=== PATIENT | male | born 1975 | race Caucasian/White ===

== ENCOUNTER 2017-06-15 10:21 | Emergency (ER) | payer MEDICAID, SELFPAY ==
[2017-06-15 10:22] VITALS: BP 153/96; PULSE 115; RESP 18; TEMP 36.6; O2SAT 100; BMI 25.4
--- NOTE | 2017-06-15 10:27 | EKG12_ITS ---
Test Reason : [facility] [place] Blood Pressure : / mmHG Vent. Rate : 110 BPM Atrial Rate : 227 BPM P-R Int : 000 ms QRS Dur : 094 ms QT Int : 350 ms P-R-T Axes : 000 065 015 degrees QTc Int : 473 ms Sinus tachycardia Nonspecific T wave abnormality Abnormal ECG Confirmed by STEPHANIE KISER, SAMUEL ([id number]), editor publications LUZ APPIAH ([id number]) on 06/20/2017 4:34:03 PM Referred By: Dayday Appiah Confirmed By:SAMUEL BROWN MD
[2017-06-15 10:56] LABS: Absolute Lymphocyte Count 1.81 X10^3/ul (0.83-4.51); Absolute Neutrophil Count 1.8 X10^3/uL (2.0-7.7); Basophil# 0.02 X10^3/uL; Basophil% 0.5 % (0-1); Eosinophil# 0.03 X10^3/uL; Eosinophils% 0.8 % (0-5); Hematocrit 47.6 % (40-54); Hemoglobin 15.2 g/dl (13.0-16.5); Lymphocyte # 1.81 X10^3/ul (4.0); Mean Corp Hgb Conc 31.9 g/gl (32-36); Mean Corpuscular Hgb 24.4 pg (27.0-32.0); Mean Corpuscular Volume 76.4 fL (80-94); Mean Platelet Vol. 8.9 fl (6.2-12.0); Monocyte# 0.14 X10^3/uL; Monocyte% 3.7 % (0-10); Neutrophil # 1.77 X10^3/uL (2.7-7.7); Platelet Count 317 K/mm3 (150-450); RBC Distribution Width CV 15.7 % (11.6-14.6); RBC Distribution Width SD 42.1 fl (35.1-43.9); Red Blood Count 6.23 M/mm3 (4.6-6.2); White Blood Count 3.8 K/mm3 (4.4-11.0)
[2017-06-15 10:58] LABS: POSITIVE COUNT NO; POSITIVE DIFFERENTIAL NO; POSITIVE MORPHOLOGY NO
[2017-06-15 11:08] LABS: Anion Gap 10 (5-15); BUN 3 mg/dL (7-18); BUN/Creat Ratio 3.2 RATIO (10-20); Calcium,Total 8.8 mg/dL (8.5-10.1); Chloride 105 mmol/L (98-107); Creatinine, Serum 0.94 mg/dL (0.70-1.30); EST Glomerular Filtration Rate 95 mL/min (>60); Est Glom Filt Rate - Afr Amer 115 mL/min (>60); Estimated Creatinine Clearance 114.66 ml/min; Glucose 111 mg/dL (74-106); Sodium Level 142 mmol/L (136-145)
[2017-06-15 11:45] VITALS: BP 158/96; PULSE 84; RESP 18; O2SAT 98
[2017-06-15 12:07] LABS: Amphetamine Urine VISTA NEGATIVE (<1000 ng/mL); Barbiturate Urine VISTA NEGATIVE (< 200 ng/mL); Benzodiazepine Urine VISTA NEGATIVE (< 200 ng/mL); Cocaine Urine VISTA NEGATIVE (< 300 ng/mL); Ecstacy Urine VISTA NEGATIVE (< 500 ng/mL); Methadone Urine VISTA NEGATIVE (< 300 ng/mL); PCP Urine VISTA NEGATIVE (< 25 ng/mL); THC Urine VISTA NEGATIVE (< 50 ng/mL); Vista UDS pH Range 6
[2017-06-15 12:10] VITALS: BP 150/80; PULSE 80; RESP 18
[2017-06-15] MEDS: LORazepam 2 MG/ML Syringe IM (12:31)
[2017-06-15] MEDS: Haloperidol Lactate 5 MG/ML Vial 10 MG IM (12:31)
--- NOTE | 2017-06-15 14:54 | ED.DCSUM_ITS ---
- ER Visit Summary Date of Service: 06/15/17 Chief Complaint: [Abnormal behavior/psychosis] History of Present Illness: The patient is a 41 M [to the emergency department with flight of ideas and abnormal behavior. Patient was referred here from psychiatrist office. Patient apparently has been without his medication for a week. Patient with incoherent thoughts, pressured speech, and uncooperative. Patient denied being suicidal or homicidal. Does admit to hallucinations and visual. He denies any recent illness.] Physical Examination: [HEENT-PERRLA, EOMI. Cranial nerves II through XII grossly intact. TMs clear. Mucous membranes moist. No adenopathy. Cardiovascular-regular rate and rhythm without murmur or ectopy Lungs-clear to auscultation, chest wall stable without crepitus or subcu emphysema Abdomen-normoactive bowel sounds, soft, nontender, no rebound or rigidity, no peritoneal signs. Extremities-intact ?4, normal range of motion, normal pulses, atraumatic] Test Results: [EKG obtained showed a sinus rhythm with rate 110 bpm with some nonspecific ST changes. CBC with differential showed a white count 3.8, hemoglobin 15, hematocrit 47.6, platelets 317. Chemistry showed a sodium 142, potassium 3.0, chloride 105, CO2 27, BUN 3, creatinine 0.94, glucose 111. Tox screen was positive for opiates. Alcohol was 162.] Emergency Department Course and Treatment: [Patient will be evaluated crisis for transfer to psychiatric facility. Patient was uncooperative in the emergency department initially had to be placed in four-point restraints. Patient subsequently was medicated with Haldol and Ativan.] Treatment Plan: [Admit to psychiatric facility] Disposition: [Transfer] Impression: [Psychosis with schizophrenia decompensation/noncompliant with meds] This note was generated with [employer] software. 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 Patient has been out of restraints and has been cooperative. He has not required any further medication. At this time we are still awaiting word back from [facility]. Chapito Carter MD This note was generated with [employer] dictation software. It may contain incorrect words, spelling, and punctuation that were not noted in review of the chart prior to signing <Jovita Carter - Last Filed: 06/16/17 06:53> ED Disposition <Emma Mosher - Last Filed: 06/15/17 14:55> <Jovita Carter - Last Filed: 06/16/17 06:53> - Plan for ED Patient: Chief Complaint: Mental Health Referrals: Care Physician,No Primary [Primary Care Provider] -
--- NOTE | 2017-06-15 15:23 | NURSING ---
CALLED CRISIS, TALKED TO SHIRLEY
--- NOTE | 2017-06-15 16:05 | NURSING ---
YULIA, CRISIS, HERE FOR PATIENT
[2017-06-15 19:00] VITALS: BP 102/72; PULSE 107; RESP 16; O2SAT 97
--- NOTE | 2017-06-15 19:59 | EKG12_ITS ---
Test Reason : Blood Pressure : / mmHG Vent. Rate : 119 BPM Atrial Rate : 119 BPM P-R Int : 128 ms QRS Dur : 090 ms QT Int : 308 ms P-R-T Axes : 055 065 -48 degrees QTc Int : 433 ms Sinus tachycardia T wave abnormality, consider inferolateral ischemia Abnormal ECG Confirmed by STEPHANIE KISER, SAMUEL ([id number]), publications editor LUZ APPIAH ([id number]) on 06/20/2017 4:34:20 PM Referred By: Dayday Appiah Confirmed By:SAMUEL BROWN MD
[2017-06-15 20:23] LABS: AST(SGOT) 12 U/L (15-37); Alanine Aminotransfer ALT/SGPT 17 U/L (16-61); Albumin, Serum 3.8 g/dL (3.2-5.0); Alkaline Phosphatase 175 U/L (45-117); Bilirubin, Direct 0.11 mg/dL (0.00-0.30); Globulin 3.5 g/dL (2.2-4.2); Protein, Total 7.3 g/dL (6.4-8.2)
[2017-06-16] VITALS (15 sets, daily range): BP systolic 105–150; BP diastolic 67–82; PULSE 74–102; RESP 14–20; O2SAT 91–100
--- NOTE | 2017-06-16 07:01 | NURSING ---
LAMAR FROM CRISIS SAID THAT [facility] IS FULL AND PATIENT IS ON THE STACK FOR [facility] TO REVIEW
--- NOTE | 2017-06-16 07:54 | ED.RN ---
LAMAR CALLED AT 0755 SAID THAT [facility] CONTACTED HER, PATIENT SHOULD BE BE TRANSFERRED TO THEIR THEIR FACILITY SOMETIME TODAY
--- NOTE | 2017-06-16 08:24 | ED.RN ---
brown necklace and silver necklace removed from pt and put in pt belonging bag
[2017-06-16] MEDS: Meloxicam 15 MG Tablet PO (09:02)
[2017-06-16] MEDS: RisperiDONE 2 MG Tablet 6 MG PO (09:02)
--- NOTE | 2017-06-16 22:53 | NURSING ---
pt transferred to [facility] with no incident. 1 bag of personal belongings given to pt
== END 2017-06-16 22:53 ==
PROVIDERS: Emergency Medicine; Emergency Provider Emergency Medicine
DX: F29 Unspecified psychosis not due to a substance or known physiological condition (principal); F20.9 Schizophrenia, unspecified; F32.9 Major depressive disorder, single episode, unspecified; F31.9 Bipolar disorder, unspecified; Z91.14 Patient's other noncompliance with medication regimen
CPT/HCPCS: 80048; 80076; 80307; 80320; 85025; 93005; 96372; 99285; G0480

== ENCOUNTER 2017-07-06 10:00 | Outpatient (RCR) | payer MEDICARE, MEDICAID, SELFPAY ==
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
--- NOTE | 2017-09-13 10:06 | HP.PTDCNRP_ITS ---
HP - Discharge Summary (1) - Patient Information LILY HOLLOWAY was seen in my office for initial evaluation on 06/01/17. The following Plan of Care was established for this patient: Initial Frequency: 2x /Week Initial Duration: 5WEEKS - Anticipated Interventions Patient/Client Instruction: Educate patient on: Condition, Plan of Care For the Purpose of:: To decrease pain, To decrease swelling/inflammation, To increase ROM, To improve muscle performance and motor function, To improve ability to perform ADL's, To increase tolerance to activity/condition/position, To improve performance and independence with ADL's, To decrease level of supervision to perform tasks, To improve ability of physical actions for home/ community/work/leisure, To improve gait and locomotor functions, To improve health of tissue, To decrease soft tissue restriction, To increase flexibility/ ROM, To improve endurance, To improve balance, To improve safety with gait, To assume or resume ADL's, To improve ability to perform tasks related to life management Therapeutic Exercise to Include: Strength training, Flexibilty training, Gait and locomotor training, Active ROM For the Purpose of:: To decrease pain, To increase ROM, To improve muscle performance and motor function, To improve ability to perform ADL's, To increase tolerance to activity/condition/position, To improve performance and independence with ADL's, To improve ability of physical actions for home/ community/work/leisure, To improve gait and locomotor functions, To improve health of tissue, To decrease soft tissue restriction, To increase flexibility/ ROM, To improve balance, To improve safety with gait, To improve ability to perform tasks related to life management TENS: Yes IF ES: Yes Cryotherapy (ice pack, ice massage): Yes Vasopneumatic device: Yes For the Purpose of:: To decrease pain, To decrease swelling/inflammation, To increase ROM, To improve health of tissue, To decrease soft tissue restriction This patient was last seen in our office 07/06/17. Pertinent comments regarding their Physical therapy will appear below: Patient seen for PT for left femur fx ,but patient was inconsistent with PT due to other personal problems At this point I will be discontinuing this patient from physical therapy. I would be happy to see this patient again in the future if found appropriate by the physician. Thank you! Juan Manuel Thompson, PT,
== END 2017-07-06 19:00 | disposition home or self-care (01) ==
LOC: PT 10:00
PROVIDERS: Visit Provider Orthopaedic Surgery
DX: S72.492D Other fracture of lower end of left femur, subsequent encounter for closed fracture with routine healing (principal)
CPT/HCPCS: 97110; 97162

== ENCOUNTER 2020-09-26 13:18 | Emergency (ER) | payer MEDICARE, SELFPAY ==
[2020-09-26 13:19] VITALS: BP 127/65; PULSE 107; RESP 18; TEMP 36.7; O2SAT 97; BMI 26.9
--- NOTE | 2020-09-26 14:14 | EKG12_ITS ---
Test Reason : [facility] Blood Pressure : / mmHG Vent. Rate : 080 BPM Atrial Rate : 080 BPM P-R Int : 144 ms QRS Dur : 090 ms QT Int : 388 ms P-R-T Axes : 073 068 052 degrees QTc Int : 447 ms Normal sinus rhythm Normal ECG Confirmed by STEPHANIE KISER, SAMUEL ([id number]), editorial director TANYA ALVAREZ ([id number]) on 10/01/2020 9:26:45 AM Referred By: QUIN/TONE Confirmed By:SAMUEL BROWN MD
--- NOTE | 2020-09-26 14:34 | ED.RN ---
PT REFUSING BLOOD WORK.
--- NOTE | 2020-09-26 14:37 | ED.RN ---
PROVIDER AWARE THAT PT IS REFUSING BLOOD WORK, PROVIDER WANTS SOCIAL WORK TO SEE.
--- NOTE | 2020-09-26 15:02 | EX.ED.DYSGE1 ---
HPI History of Present Illness Chief Complaint: Alt LOC Informant: EMS Narrative Narrative: History of bipolar and schizophrenia brought in from home after PD was contacted by her brother stating patient is having abnormal behavior. Reports patient is noncompliant with his medications from pink slip. PD was unable to calm down the patient, patient was having delusions, he required medications with IM Versed by EMS upon their arrival. He was brought here for evaluation. Currently denies any homicidal or suicidal ideations. When asked about medications patient states he takes blood thinners. He is denying any visual or auditory hallucinations. However he is speaking tangentially, difficulty to redirect. Please report dose patient was screaming at the please officer reporting their cameras were hurting him. 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 PFSH PFSH Home Medications meloxicam 15 mg PO DAILY 06/15/17 [History Last Taken Unknown] mirtazapine 15 mg PO QHS 06/15/17 [History Last Taken Unknown] risperidone [Risperdal] 6 mg PO DAILY 06/15/17 [History Last Taken Unknown] Allergy/AdvReac Type Severity Reaction Status Date / Time chlorpromazine Allergy Other Verified 09/26/20 13:23 [From Thorazine] haloperidol [From Haldol] Allergy Other Verified 09/26/20 13:23 Social History Smoking Status: Current every day smoker tobacco type: cigarettes ROS ROS ED Constitutional Constitutional ED: Denies chills, fever(s) or sweats Eyes Eyes: Denies change in vision ENT ENT ED: Denies dysphagia or sore throat Cardiovascular Cardiovascular: Denies chest pain, leg edema, palpitations or racing heartbeat Respiratory/Chest Respiratory/Chest: Denies cough, dyspnea or dyspnea on exertion Gastrointestinal Gastrointestinal: Denies abdominal pain, diarrhea, nausea or vomiting Genitourinary Genitourinary ED: Denies dysuria, hematuria or urinary frequency Musculoskeletal Musculoskeletal: Denies back pain, extremity pain or neck pain Integumentary Denies rash or wounds Neurologic Neurologic: Denies headache(s), paresthesias or weakness Psychiatric Psychiatric: Denies suicidal ideation or suicidal thoughts EXAM Physical Exam Const Vital Signs: 09/26/20 13:19 09/26/20 18:50 Temperature 98.0 F Temperature Source Oral Pulse Rate 107 H 91 Respiratory Rate 18 18 Blood Pressure 127/65 H 125/73 H Blood Pressure Mean 85 90 Pulse Ox 97 98 Oxygen Delivery Method Room Air Room Air Positive well nourished and well developed General Appearance ED: well developed and NAD HEENT Reports moist mucous membranes normocephalic and atraumatic Eyes PERRL, EOMs intact bilaterally and conjunctivae normal General Eye ED: Yes normal appearance of both eyes Neck no lymphadenopathy and supple General: Negative for tenderness Chest Wall Chest: Negative for tenderness Resp normal respiratory effort and normal air movement Effort and Inspection: symmetric chest movement; Negative for respiratory distress Cardio regular rate, regular rhythm and no murmurs Peripheral Pulses: pulses 2+ throughout GI normal to inspection, nondistended, normoactive bowel sounds and non-tender Palpation: Negative for guarding or rebound tenderness present Back/Spine no CVA tenderness and no thoracic nor lumbar tenderness Extremity normal to inspection General Extremety ED: Negative for edema or tenderness General Extremity: Negative for edema Neuro oriented x3 and no sensory deficits noted Sensorium / Orientation: awake and alert Psych Psych Narrative: Denies any suicidal homicidal ideations. Speaking in tangentiality, difficulty redirecting. Skin no rashes or lesions noted and no wounds MDM MDM MDM Narrative Medical decision making narrative: Patient vital signs stable. EKG notes a normal rhythm. Ordered lab work to help with medical clearance, however per nursing he declines any blood draws. Patient history of schizophrenia and bipolar exam clearly psychosis began tangentiality. Social work contacted who will evaluate to help with disposition. Reported by social work, facilities will not evaluate and less alcohol level was obtained. Patient did later agree with blood work draw. Alcohol negative. Basic labs with hypokalemia potassium 2.8 he had low potassium previously. EKG normal. Given oral replacement of potassium. [place] slip filled out. Awaiting disposition. Lab Data Labs: Laboratory Results - last 24 hr 09/26/20 09/26/20 09/26/20 15:38 15:38 15:38 WBC 9.1 RBC 5.47 Hgb 14.3 Hct 43.7 MCV 79.9 L MCH 26.1 L MCHC 32.7 RDW Std Deviation 40.2 RDW Coeff of Forest 13.9 Plt Count 339 MPV 8.7 Immature Gran % (Auto) 0.300 Neut % (Auto) 63.8 Lymph % (Auto) 23.5 Mccreary % (Auto) 10.7 H Eos % (Auto) 1.0 Baso % (Auto) 0.7 Absolute Neuts (auto) 5.8 Absolute Lymphs (auto) 2.14 Nucleated RBC % 0 Sodium 139 Potassium 2.8 L Chloride 103 Carbon Dioxide 27.0 Anion Gap 9 BUN 10 Creatinine 1.09 Estim Creat Clear Calc 84.54 Est GFR (MDRD) Af Amer 95 Est GFR (MDRD) Non-Af 78 BUN/Creatinine Ratio 9.2 L Glucose 72 L Calcium 9.4 Ethyl Alcohol < 3.0 EKG Initial EKG: Attestation: I personally reviewed and interpreted this EKG as follows: Comments: EKG: Sinus rate of 80, no ST or T wave changes, QTC 447. Discharge Plan Triage Chief Complaint: Alt LOC ED Provider: Jevon Lemus Dx/Rx/DC Orders Prescriptions: No Action meloxicam 15 MG tablet 15 mg PO DAILY RF: 0 risperidone [Risperdal] 3 MG tablet 6 mg PO DAILY RF: 0 mirtazapine 15 MG tablet 15 mg PO QHS RF: 0 Primary Care Provider: Care Physician,No Primary
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
[2020-09-26 15:45] LABS: Absolute Lymphocyte Count 2.14 X10^3/uL (0.83-4.51); Absolute Neutrophil Count 5.8 X10^3/uL (2.0-7.7); Basophil# 0.06 X10^3/uL; Basophil% 0.7 % (0-1); Eosinophil# 0.09 X10^3/uL; Hematocrit 43.7 % (40-54); Hemoglobin 14.3 g/dL (13.0-16.5); Lymphocyte # 2.14 X10^3/ul (0.83-4.51); Lymphocyte % 23.5 % (19-41); Mean Corp Hgb Conc 32.7 g/dL (32-36); Mean Corpuscular Hgb 26.1 pg (27.0-32.0); Mean Corpuscular Volume 79.9 fL (80-94); Mean Platelet Vol. 8.7 fl (6.2-12.0); Monocyte# 0.97 X10^3/uL; Monocyte% 10.7 % (0-10); NRBC Flagged by Analyzer 0 % (0-5); Neutrophil # 5.81 X10^3/uL (2.7-7.7); Neutrophil % 63.8 % (47-70); Platelet Count 339 K/mm3 (150-450); RBC Distribution Width CV 13.9 % (11.6-14.6); RBC Distribution Width SD 40.2 fl (35.1-43.9); Red Blood Count 5.47 M/mm3 (4.6-6.2); White Blood Count 9.1 K/mm3 (4.4-11.0)
[2020-09-26 16:03] LABS: Anion Gap 9 (5-15); BUN 10 mg/dL (7-18); BUN/Creat Ratio 9.2 RATIO (10-20); Calcium,Total 9.4 mg/dL (8.5-10.1); Chloride 103 mmol/L (98-107); Creatinine, Serum 1.09 mg/dL (0.70-1.30); EST Glomerular Filtration Rate 78 mL/min (>60); Est Glom Filt Rate - Afr Amer 95 mL/min (>60); Estimated Creatinine Clearance 84.54 ml/min; Glucose 72 mg/dL (74-106); Potassium 2.8 mmol/L (3.5-5.1); Sodium Level 139 mmol/L (136-145)
[2020-09-26 16:11] LABS: Alcohol, Blood (Medical)-Serum < 3.0 mg/dL
--- NOTE | 2020-09-26 16:17 | ED.RN ---
SW NOTIFIED ONTHE ALCOHOL RESULT. WILLIAM IS CALLING TO NOTIFY CRISIS SO THE PT CAN BE ASSESSED. ALCOHOL WAS THE ONLY TEST CRISIS REQUESTED.
[2020-09-26] MEDS: Potassium Chloride Oral Tablet 20 MEQ 60 MEQ PO (18:07)
[2020-09-26 18:50] VITALS: BP 125/73; PULSE 91; RESP 18; O2SAT 98
[2020-09-26 23:16] VITALS: BP 93/56; PULSE 93; RESP 18; O2SAT 98
[2020-09-26 23:41] LABS: Amphetamine Urine VISTA POSITIVE (<1000 ng/mL); Barbiturate Urine VISTA NEGATIVE (< 200 ng/mL); Benzodiazepine Urine VISTA POSITIVE (< 200 ng/mL); Cocaine Urine VISTA NEGATIVE (< 300 ng/mL); Ecstacy Urine VISTA POSITIVE (< 500 ng/mL); Methadone Urine VISTA NEGATIVE (< 300 ng/mL); PCP Urine VISTA NEGATIVE (< 25 ng/mL); THC Urine VISTA POSITIVE (< 50 ng/mL); Vista UDS pH Range 5
[2020-09-27 02:24] VITALS: BP 93/56; PULSE 93; RESP 18; TEMP 36.7; O2SAT 98
== END 2020-09-27 02:40 | disposition home or self-care (01) ==
LOC: ED 14:07
PROVIDERS: Emergency Provider Emergency Medicine
DX: R41.82 Altered mental status, unspecified (principal); F17.210 Nicotine dependence, cigarettes, uncomplicated; Z91.14 Patient's other noncompliance with medication regimen
CPT/HCPCS: 80048; 80307; 82077; 85025; 87426; 93005; 99285

== ENCOUNTER 2020-10-28 15:38 | Emergency (ER) | payer MEDICARE, SELFPAY ==
[2020-10-28 15:39] VITALS: BP 164/126; PULSE 63; RESP 18; TEMP 37.1; O2SAT 100; BMI 24.3
--- NOTE | 2020-10-28 15:50 | ED.RN ---
PT FIDGETING, DID FINALLY REMOVAL CLOTHING AND PUT GOWN OWN. PT HAS TO BE ASKED REPEATEDLY TO COOPERATE. PT BELONGINGS: 2 BRACELETS, SHORTS, SHIRT, SOCKS, SHOES.
--- NOTE | 2020-10-28 15:52 | ED.RN ---
PT WILL OCCASIONALLY SMIRK AND GRIN FOR UNKNOWN REASON. PT ROLLING EYES AT STAFF.
--- NOTE | 2020-10-28 15:53 | ED.RN ---
PT ALLOWING STAFF TO DRAW BLOOD.
--- NOTE | 2020-10-28 16:13 | EKG12_ITS ---
Test Reason : MHC Blood Pressure : / mmHG Vent. Rate : 081 BPM Atrial Rate : 081 BPM P-R Int : 136 ms QRS Dur : 096 ms QT Int : 390 ms P-R-T Axes : 062 057 068 degrees QTc Int : 453 ms Poor data quality, interpretation may be adversely affected Normal sinus rhythm Normal ECG Confirmed by ANNA KISER, ARIELLE ([id number]), videotape editor TANYA ALVAREZ ([id number]) on 10/30/2020 9:24:10 AM Referred By: BERNIE Confirmed By:JOSE MANUEL CASTILLO MD
--- NOTE | 2020-10-28 16:16 | NURSING ---
NO OLD EKGS
--- NOTE | 2020-10-28 17:06 | EX.ED.VIS.PS ---
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 He is acting bizarre. He is physically aggressive, uncooperative, and talking nonsensically. He was paranoid that someone was trying to get him according to the police, and that radio waves were affecting his brain. He states that he supposed be on medicines for anxiety but he does not take them. Social work talk to his mother who confirms that he has schizophrenia and has not been taking his medications and is acting paranoid and bizarre. The patient denies having any physical symptoms lately that he knows of or illness or injury. He denies using drugs. [facility] Medical History Anxiety Bipolar disorder Chronic pain Iron deficiency anemia Schizophrenia Home Medications eszopiclone [Lunesta] 3 mg PO QHS 10/28/20 [History Last Taken Unknown] Allergy/AdvReac Type Severity Reaction Status Date / Time chlorpromazine Allergy Other Verified 09/26/20 13:23 [From Thorazine] haloperidol [From Haldol] Allergy Other Verified 09/26/20 13:23 Social History Smoking Status: Current every day smoker tobacco type: cigarettes ROS ROS ED Constitutional Constitutional ED: Denies chills or fever(s) Eyes Eyes: Denies change in vision or diplopia ENT ENT ED: Denies rhinorrhea or sore throat Cardiovascular Cardiovascular: Denies chest pain or palpitations Respiratory/Chest Respiratory/Chest: Denies cough or dyspnea Gastrointestinal Gastrointestinal: Denies abdominal pain, diarrhea, nausea or vomiting Genitourinary Genitourinary ED: Denies dysuria or hematuria Musculoskeletal Musculoskeletal: Denies back pain or neck pain Integumentary Denies abscess or rash Neurologic Neurologic: Denies headache(s), paresthesias or weakness Psychiatric Psychiatric: Reports as per HPI, anxiety and behavioral changes; Denies suicidal thoughts EXAM Physical Exam Const Vital Signs: 10/28/20 15:39 Temperature 98.8 F Temperature Source Temporal Pulse Rate 63 Respiratory Rate 18 Blood Pressure 164/126 H Blood Pressure Mean 138 Pulse Ox 100 Oxygen Delivery Method Room Air Positive well nourished and well developed General Appearance ED: well developed and NAD HEENT Reports moist mucous membranes normocephalic and atraumatic Eyes PERRL and EOMs intact bilaterally Neck full ROM and supple Resp normal respiratory effort and clear to auscultation bilaterally Cardio regular rate, regular rhythm and no murmurs GI non-tender and non-distended Auscultation: normoactive bowel sounds Palpation: soft Back/Spine no CVA tenderness General Back: other FROM Extremity normal to inspection General Extremety ED: Negative for edema, pulses abnormal or tenderness General Extremity: Negative for edema or pulses abnormal Neuro oriented x3, CN's II-XII intact bilaterally and no sensory deficits noted Sensorium / Orientation: awake and alert Motor Exam: strength 5/5 throughout Psych Psych Narrative: After initial evaluation, patient more cooperative and nurses/police were able to remove handcuffs/restraints without need for Geodon Thought Process: disorganized, illogical, loose associations and word salad Thought Content: delusion(s) Delusional Thought Content Details: Positive for paranoid Insight: poor Judgement: poor Skin no rashes or lesions noted and no wounds MDM MDM EKG Initial EKG: Attestation: I personally reviewed and interpreted this EKG as follows: Interpretation: Sinus Rhythm and No Acute Injury Pattern Comments: Normal EKG Discharge Plan Triage Chief Complaint: Mental Health ED Provider: Antoine Chan Dx/Rx/DC Orders Clinical Impression: Acute psychosis, Schizophrenia Prescriptions: No Action eszopiclone [Lunesta] 3 mg Tablet 3 mg PO QHS RF: 0 Primary Care Provider: Care Physician,No Primary Referrals: Care Physician,No Primary [Primary Care Provider] - Disposition Disposition: Psychiatric Hospital or Unit
[2020-10-28 17:32] LABS: Absolute Neutrophil Count 3.3 X10^3/uL (2.0-7.7); Basophil# 0.07 X10^3/uL; Basophil% 1.1 % (0-1); Eosinophil# 0.08 X10^3/uL; Eosinophils% 1.3 % (0-5); Hematocrit 43.4 % (40-54); Hemoglobin 13.9 g/dL (13.0-16.5); Lymphocyte % 29.2 % (19-41); Mean Corpuscular Volume 81.3 fL (80-94); Mean Platelet Vol. 9.6 fl (6.2-12.0); Monocyte# 0.88 X10^3/uL; Monocyte% 14.3 % (0-10); NRBC Flagged by Analyzer 0 % (0-5); Neutrophil # 3.33 X10^3/uL (2.7-7.7); Neutrophil % 53.9 % (47-70); Platelet Count 308 K/mm3 (150-450); RBC Distribution Width CV 13.9 % (11.6-14.6); RBC Distribution Width SD 40.6 fl (35.1-43.9); Red Blood Count 5.34 M/mm3 (4.6-6.2); White Blood Count 6.2 K/mm3 (4.4-11.0)
[2020-10-28 17:41] LABS: Alcohol, Blood (Medical)-Serum < 3.0 mg/dL
[2020-10-28 17:43] LABS: ALB/GLOB Ratio 1.5 RATIO (0.9-2.4); AST(SGOT) 43 U/L (15-37); Alanine Aminotransfer ALT/SGPT 42 U/L (16-61); Albumin, Serum 4.3 g/dL (3.2-5.0); Alkaline Phosphatase 82 U/L (45-117); Anion Gap 9 (5-15); BUN 14 mg/dL (7-18); BUN/Creat Ratio 12.1 RATIO (10-20); Calcium,Total 9.2 mg/dL (8.5-10.1); Chloride 100 mmol/L (98-107); Creatinine, Serum 1.16 mg/dL (0.70-1.30); EST Glomerular Filtration Rate 73 mL/min (>60); Est Glom Filt Rate - Afr Amer 88 mL/min (>60); Estimated Creatinine Clearance 79.44 ml/min; Globulin 2.8 g/dL (2.2-4.2); Glucose 133 mg/dL (74-106); Potassium 2.9 mmol/L (3.5-5.1); Protein, Total 7.1 g/dL (6.4-8.2); Sodium Level 137 mmol/L (136-145)
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
[2020-10-28 18:56] VITALS: RESP 14
--- NOTE | 2020-10-28 18:56 | ED.RN ---
pt attempted to provide urine sample, a small amount in the specimen but was not enough to send.
--- NOTE | 2020-10-28 20:00 | CM.ED ---
Addendum entered by Kylee Orellana 10/28/20 22:10: Vini unable to provide list of PCP as patient does not appear to have a belonging bag. [facility] Original Note: Vini Note VINI noted that patient did not have a PCP however, patient is currently psychotic and thus it is not appropriate to provide him with information about PCP. However, this marketing copywriter will put a provider list in his bed for review later. Plan: Inpatient psych [facility]
--- NOTE | 2020-10-28 20:03 | CM.ED ---
Social work Note WILLIAM faxed referral to [facility]. WILLIAM received phone call from Lesli at [facility]. She inquired about tox screen for patient. WILLIAM reviewed chart and tox screen is not available yet. WILLIAM spoke to mobile developer Linda. Patient had attempted to provide urine screen but it was not enough. Thus, they are waiting for patient to provide urine sample to obtain tox screen. WILLIAM updated mobile developer that [facility] is requesting tox screen report. WILLIAM will continue to monitor and be available. Plan: Inpatient psych [facility]
[2020-10-28 20:59] VITALS: RESP 14
[2020-10-28] MEDS: Ziprasidone IM 20 MG/ML VIAL IM (21:14)
--- NOTE | 2020-10-28 21:15 | ED.RN ---
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 EXPLAINED COMPUTERS ARE NOT FOR PT USE. PT BECAME UPSET, PACING AND ASKING TO TALK TO SECURITY. HRO, GEAR LAPPER AND HAND FLATWORK FINISHER'S DEPUTY AT BEDSIDE. PT INCREASINGLY AGITATED. ATTEMPTED SEVERAL TIMES TO DE-ESCALATE, UNSUCCESSFUL. IM GEODON GIVEN WITHOUT DIFFICULTY PER ORDER.
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
[2020-10-28 22:00] VITALS: RESP 16
--- NOTE | 2020-10-28 22:10 | CM.ED ---
WILLIAM Note WILLIAM called [facility] and spoke to Florecita. Florecita was updated about patient's plan for inpatient psych. WILLIAM explained that referral has been made to [facility] but waiting on the tox screen. Florecita said that patient is active with [facility]. He had a crisis assessment on September 26 and was contacted at the end of September but did not respond to the call. Florecita said that on October 22 patient had an appt with [facility] but no showed. WILLIAM called Eli at [facility]. WILLIAM updated her that this repairer typewriter is leaving soon and [facility] will need to call the graphic editor regarding WILLIAM called tirso's mother, Eda and updated her that patient had gotten medication and the staff will be placing a catheter for patient's urine sample. WILLIAM advised this repairer typewriter is going home but if Eda has questions she can call the ED and speak to staff. Eda asked if patient is for sure going to [facility] and this repairer typewriter explained that a referral has been made but he has not been accepted yet. No other issues or concerns voiced. Plan: Inpatient psych [facility]
[2020-10-28 22:43] LABS: Amphetamine Urine VISTA POSITIVE (<1000 ng/mL); Barbiturate Urine VISTA NEGATIVE (< 200 ng/mL); Benzodiazepine Urine VISTA NEGATIVE (< 200 ng/mL); Cocaine Urine VISTA NEGATIVE (< 300 ng/mL); Ecstacy Urine VISTA POSITIVE (< 500 ng/mL); Methadone Urine VISTA NEGATIVE (< 300 ng/mL); PCP Urine VISTA NEGATIVE (< 25 ng/mL); THC Urine VISTA POSITIVE (< 50 ng/mL); Vista UDS pH Range 6
--- NOTE | 2020-10-28 23:44 | ED.RN ---
GOMEZ FROM [facility] CALLED, SHE STATES PT IS ON WAIT LIST TO BE EVALUATED BY DOCTOR IN THE MORNING. AFTER A DOCTOR REVIEWS HIS CHART IN THE MORNING THEY WILL DETERMINE IF HE WILL BE ACCEPTED.
[2020-10-29 00:28] VITALS: BP 102/70; PULSE 77; RESP 16; O2SAT 99
[2020-10-29 02:00] VITALS: RESP 16
[2020-10-29 04:00] VITALS: RESP 16
[2020-10-29 06:38] VITALS: BP 120/74; PULSE 78; RESP 16; O2SAT 99
[2020-10-29 08:43] VITALS: BP 129/77; PULSE 79; RESP 16; O2SAT 98
--- NOTE | 2020-10-29 09:11 | ED.RN ---
this rn attempted to call report at 0722. per board of education secretary, the nurses are in report, and cannot take a phone call at this time. this rn trying to call report again at 0912, no answer.
== END 2020-10-29 08:45 ==
PROVIDERS: Emergency Provider Emergency Medicine
DX: F23 Brief psychotic disorder (principal); F17.210 Nicotine dependence, cigarettes, uncomplicated; Z79.899 Other long term (current) drug therapy
CPT/HCPCS: 80053; 80307; 82077; 85025; 87426; 93005; 96372; 99285; J3486

== ENCOUNTER 2022-02-04 11:59 | Emergency (ER) | payer MEDICARE, SELFPAY ==
[2022-02-04 12:01] VITALS: BP 112/76; PULSE 86; RESP 16; TEMP 36.4; O2SAT 100; BMI 22.2
--- NOTE | 2022-02-04 12:15 | EX.ED.DYSGE1 ---
HPI <NIRAV Cota - Last Filed: 02/04/22 12:48> History of Present Illness Chief Complaint: Other, Pain/Inj Narrative Narrative: 46-year-old male with past medical history of bipolar, schizophrenia presents with generalized pain and pain and swelling in both hands and feet. He states he has chronic back pain and left knee pain and when it flares up he gets the swelling. It has been worse for the last month. States the swelling in his feet actually went down since this morning. He is able to ambulate. Denies trauma. PFSH <NIRAV Cota - Last Filed: 02/04/22 12:48> PFSH Medical History Anxiety Bipolar disorder Chronic pain Iron deficiency anemia Schizophrenia Home Medications eszopiclone 3 mg tablet (Lunesta) 3 mg PO QHS 10/28/20 [History Last Taken Unknown] Allergy/AdvReac Type Severity Reaction Status Date / Time chlorpromazine Allergy Other Verified 02/04/22 12:04 [From Thorazine] haloperidol [From Haldol] Allergy Other Verified 02/04/22 12:04 naproxen [From Naprosyn] Allergy Other Verified 02/04/22 12:43 NSAIDS (Non-Steroidal Allergy Rash Verified 02/04/22 12:05 Anti-Inflamma Social History Smoking Status: Current every day smoker tobacco type: cigarettes ROS <NIRAV Cota - Last Filed: 02/04/22 12:48> ROS ED ROS Narrative Constitutional: Negative for fever, chills, malaise. Eyes: Negative for visual change. ENT: Negative for sore throat, ear pain, rhinorrhea. CVS: Negative for palpitations, chest pain, syncope. Respiratory: Negative for shortness of breath, cough, orthopnea. GI: Negative for abdominal pain, nausea, vomiting. : Negative for dysuria, hematuria or frequency. Neuro: Negative for headache, motor/sensory dysfunction. Skin: Negative for rash, abscess, or wound. Musc: Positive for extremity swelling, trauma. Heme: Negative for easy bruising, bleeding, lymphadenopathy. EXAM <NIRAV Cota Last Filed: 02/04/22 12:48> Physical Exam Narrative Exam Narrative: CONST: Patient sitting in no acute distress. EYES: Normal inspection. ENT: Normal inspection, moist mucous membranes. NECK: Normal inspection. RESP: No respiratory distress, CTAB. CVS: Regular rate and rhythm, no murmur, no gallop. SKIN: Color normal, no rash, warm, dry, intact. EXTREMITIES: Normal appearance, full ROM of upper and lower extremities with no bony tenderness, no edema, 2+ radial and DP pulses. NEURO: Oriented x4. PSYCH: Normal affect. Const Vital Signs: 02/04/22 12:01 Temperature 97.5 F L Temperature Source Temporal Pulse Rate 86 Respiratory Rate 16 Blood Pressure 112/76 Blood Pressure Mean 88 Pulse Ox 100 Oxygen Delivery Method Room Air <Dr. Antoine Chan MD - Last Filed: 02/04/22 12:52> Physical Exam Const Vital Signs: 02/04/22 12:01 Temperature 97.5 F L Temperature Source Temporal Pulse Rate 86 Respiratory Rate 16 Blood Pressure 112/76 Blood Pressure Mean 88 Pulse Ox 100 Oxygen Delivery Method Room Air MDM <NIRAV Cota - Last Filed: 02/04/22 12:48> [facility] Narrative Medical decision making narrative: Patient complains of generalized pain and swelling in both hands and feet. He also has chronic left knee pain from prior surgeries and states it's been hurting more with intermittent swelling. He appears well and nontoxic. Afebrile with normal vital signs. There is mild swelling of the left knee but no appreciable swelling of his hands or feet. He has full range of motion and MSPs are intact. Normal gait. With his complaint of generalized pain I ordered a COVID test and naproxen but he refused both. Patient was offered an x-ray of his left knee but declined. At this time no further emergent work-up is indicated and he was discharged. <Dr. Antoine Chan MD - Last Filed: 02/04/22 12:52> [facility] Treatment and Re-Evaluation Narrative: Seen and evaluated independently and in conjunction with physician janitorial assistant. Agree with notes above unless documented otherwise. Patient states for an undetermined period of time has been having some painful paresthesias in the volar forefoot bilaterally including the toes. Nowhere else. He has some other random pains including his left knee where he states it has been painful and swollen for an undetermined period of time, worse when he walks and sometimes it keeps him from doing so normally. He states he had an open fracture of his left distal femur and knee remotely but less than 1 year ago, he had surgery in [place] at a trauma center, and then he suggests he had a revision of that surgery at some point, spent some time at a long term. I offered to do an x-ray of his left knee and have him referred to orthopedics but he refused the x-ray, I offered a COVID test because of random pains that could be myalgias related to COVID, he refused that and Naprosyn as well. I offered referrals to orthopedics and podiatry. He refused and decided to leave. His exam is normal except for maybe some mild swelling around his left knee. He has full range of motion, no bony tenderness, no signs of infection or erythema/inflammation. He has brisk cap refill all toes left and right feet. Discharge Plan Triage Chief Complaint: Other, Pain/Inj ED Midlevel Provider: Monique Johnston ED Provider: Antoine Chan Dx/Rx/DC Orders Clinical Impression: Chronic pain of left knee, Myalgia Instructions: ED Chronic Pain Prescriptions: No Action eszopiclone [Lunesta] 3 mg Tablet 3 mg PO QHS Primary Care Provider: Care Physician,No Primary Referrals: Melissa Munoz [Non-Staff] - Care Physician,No Primary [Primary Care Provider] - Activity Restrictions/Additional Instructions: Ice and take Tylenol or ibuprofen as needed for pain. Please follow-up with your primary care doctor. Disposition Disposition: Home, Self Care
--- NOTE | 2022-02-04 12:48 | ED.RN ---
Patient refused naprosyn and COVID test. Monique GASTELUM notified.
== END 2022-02-04 13:04 | disposition home or self-care (01) ==
LOC: ED 13:00
PROVIDERS: Emergency Provider Emergency Medicine; Visit Provider Emergency Medicine
DX: M79.641 Pain in right hand (principal); M79.642 Pain in left hand; M79.671 Pain in right foot; M79.672 Pain in left foot; M25.562 Pain in left knee; G89.29 Other chronic pain; M79.89 Other specified soft tissue disorders; F17.210 Nicotine dependence, cigarettes, uncomplicated
CPT/HCPCS: 99282

== ENCOUNTER 2022-05-16 07:58 | Outpatient (REF) | payer SELFPAY ==
[2022-05-16 07:59] VITALS: BP 140/89; PULSE 88; RESP 16; TEMP 36.3; O2SAT 99; BMI 24.3
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
[2022-05-16] MEDS: Diphth,Pertuss(Acell),Tet Vac 0.5 ML Vial IM (08:24)
[2022-05-16 09:46] LABS: HIV - WCH Non-Reactive (Nonreactive); Hepatitis B Surface Antibody Non-Reactive; Hepatitis B Surface Antigen Non-Reactive (Nonreactive); Hepatitis C Antibody Non-Reactive (Nonreactive)
[2022-05-16] MEDS: Acetaminophen 500 MG Tablet 1000 MG PO (09:46)
== END 2022-05-16 09:47 | disposition home or self-care (01) ==
LOC: ED 07:58
PROVIDERS: Visit Provider Emergency Medicine
DX: S01.511A Laceration without foreign body of lip, initial encounter (principal); F17.210 Nicotine dependence, cigarettes, uncomplicated; Z23 Encounter for immunization; Y04.8XXA Assault by other bodily force, initial encounter
CPT/HCPCS: 36415; 86703; 86706; 86803; 87340; 90471; 90715

== ENCOUNTER 2023-10-07 09:28 | Emergency (ER) | payer MEDICARE, MEDICAID, SELFPAY ==
[2023-10-07 09:29] VITALS: BP 153/99; PULSE 87; RESP 16; TEMP 36.3; O2SAT 99; BMI 30.2
--- NOTE | 2023-10-07 09:59 | EKG12_ITS ---
Test Reason : CP Blood Pressure : / mmHG Vent. Rate : 080 BPM Atrial Rate : 080 BPM P-R Int : 152 ms QRS Dur : 090 ms QT Int : 386 ms P-R-T Axes : 053 049 049 degrees QTc Int : 445 ms Normal sinus rhythm Normal ECG Confirmed by Micheal Pollock ([id number]), graphics editor ANTOINE DELATORRE ([id number]) on 10/09/2023 9:06:06 AM Referred By: Confirmed By:Micheal Pollock
[2023-10-07 10:34] LABS: Absolute Lymphocyte Count 1.82 X10^3/uL (0.83-4.51); Absolute Neutrophil Count 2.8 X10^3/uL (2.0-7.7); Basophil# 0.05 X10^3/uL; Basophil% 0.9 % (0-1); Eosinophils% 5.4 % (0-5); Hematocrit 41.1 % (40-54); Hemoglobin 13.1 g/dL (13.0-16.5); Lymphocyte # 1.82 X10^3/ul (0.83-4.51); Mean Corp Hgb Conc 31.9 g/dL (32-36); Mean Corpuscular Volume 81.7 fL (80-94); Mean Platelet Vol. 9.5 fl (6.2-12.0); Monocyte# 0.52 X10^3/uL; Monocyte% 9.4 % (0-10); NRBC Flagged by Analyzer 0 % (0-5); Neutrophil % 50.9 % (47-70); Platelet Count 272 K/mm3 (150-450); RBC Distribution Width CV 14.3 % (11.6-14.6); RBC Distribution Width SD 41.4 fl (35.1-43.9); Red Blood Count 5.03 M/mm3 (4.6-6.2); White Blood Count 5.5 K/mm3 (4.4-11.0)
--- NOTE | 2023-10-07 10:45 | RAD_ITS ---
EXAM: XR CHEST, 2 VIEWS CLINICAL INDICATION: pain TECHNIQUE: Frontal and lateral views of the chest. COMPARISON: No relevant prior studies available. FINDINGS: LUNGS AND PLEURAL SPACES: Normal. No consolidation or edema. No pneumothorax. No effusion. HEART: Normal heart size. MEDIASTINUM: No mediastinal or hilar mass. BONES/JOINTS: Chronic right clavicular fracture. RAD/Chest PA and Lateral IMPRESSION: No acute cardiopulmonary abnormality. Electronically Signed: Gregory Cárdenas MD at 11:12 EDT ,
[2023-10-07 10:48] LABS: D-Dimer Quantitative (DVT/PE) 0.59 FEU/ug/m (0.27-0.49)
--- NOTE | 2023-10-07 10:50 | ED.RN ---
D-DIMER 0.59. DR BUSCH
[2023-10-07 10:51] LABS: Anion Gap 7 (5-15); BUN 12 mg/dL (7-18); BUN/Creat Ratio 12.1 RATIO (10-20); Calcium,Total 8.9 mg/dL (8.5-10.1); Chloride 105 mmol/L (98-107); Creatinine, Serum 0.99 mg/dL (0.70-1.30); EST Glomerular Filtration Rate 86 mL/min (>60); Est Glom Filt Rate - Afr Amer 104 mL/min (>60); Estimated Creatinine Clearance 108.14 ml/min; Glucose 106 mg/dL (74-106); Potassium 3.4 mmol/L (3.5-5.1); Sodium Level 138 mmol/L (136-145); Troponin-I HS (w/2H Reflex) 4 pg/mL (3.0-78.0)
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
--- NOTE | 2023-10-07 11:07 | ED.RN ---
PT REQUESTS MEDICATION. BASED ON PT BEHAVIOR WILL HAVE 2 STAFF MEMBERS AT ALL TIME
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
--- NOTE | 2023-10-07 11:17 | ED.RN ---
PT NOW REFUSING ALL MEDICATIONS. THIS RN,JOHN LAGUNA, KHRIS BARRIOS AND DR SCHNEIDER IN ROOM. PT ANGRY,MAKING ACCUSATIONS AGAINST STAFF. WILL ALLOW PT TO CALM DOWN. NO MEDS GIVEN
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
[2023-10-07 12:31] LABS: Reflex Troponin-HS? (from REC) Y
[2023-10-07 13:01] LABS: Troponin-I HS 5 pg/mL (3.0-78.0)
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
--- NOTE | 2023-10-07 13:48 | ED.RN ---
This RN provided pt wheelchair as requested and transported pt to bench outside of facility. Pt requested that this RN go home and retrieve his wheelchair since he can't stay in [facility] facility wheelchair. This RN explained that if he uses a wheelchair then he should have arrived with it and that he is responsible for his own assistive device. Pt refused to transfer to the bench from wheelchair after repeated requests. Pt was read no trespass letter and explained his need to start walking or call for ride by D officer. Pt made phone call to information and requests number to [facility].
== END 2023-10-07 13:50 | disposition home or self-care (01) ==
PROVIDERS: Emergency Provider Emergency Medicine; Visit Provider Emergency Medicine
DX: R07.9 Chest pain, unspecified (principal); F17.210 Nicotine dependence, cigarettes, uncomplicated; G89.29 Other chronic pain; M54.9 Dorsalgia, unspecified
CPT/HCPCS: 71046; 80048; 84484; 85025; 85379; 93005; 99284; A4216